=== PATIENT | male | born 1960 | race Caucasian/White ===

== ENCOUNTER 2017-08-04 11:38 | Emergency (ER) | payer OTHER ==
[~2017-08-04] VITALS: Ht 180.3 cm; Wt 86.6 kg
[2017-08-04 12:10] LABS: Hemoglobin 18.5 g/dL (13.5-17.5)
[2017-08-04 12:12] LABS: Hematocrit 53.6 % (41.0-53.0); Mean Corpuscular Hemoglobin 30.4 pg (28.0-32.0); Mean Corpuscular Hgb Conc. 34.5 g/dL (32.0-36.0); Mean Corpuscular Volume 88.2 fL (80.0-100.0); Platelet Count (auto) 227 10^3/uL (140-450); Red Blood Cells 6.08 10^6/uL (4.5-5.90); White Blood Cell 9.5 10^3/uL (4.4-10.8)
[2017-08-04 12:21] LABS: Band Neutrophils % (manual) 0
[2017-08-04 12:22] LABS: Basophils % (manual) 0 (0.0-2.0); Blast Cells 0; Metamyelocytes % 0; Myelocytes % 0; Promyelocytes % 0; Reactive Lymphocytes 0
[2017-08-04 12:28] LABS: Urine Bacteria NONE SEEN /hpf (None Seen); Urine Blood Negative /uL (Negative); Urine Mucus FEW (None Seen); Urine Specific Gravity 1.028 (1.001-1.035); Urine WBC 1 /hpf (0 - 3)
[2017-08-04 13:04] LABS: Alcohol, Urine < 3.0 mg/dL (0-5); Amphetamine Screen, Urine NEGATIVE (NEGATIVE); Barbiturate Scree,Urine NEGATIVE (NEGATIVE); Benzodiazephine Screen, Urine NEGATIVE (NEGATIVE); Cannabinoid Screen, Urine NEGATIVE (NEGATIVE); Cocaine Screen, Urine NEGATIVE (NEGATIVE); Opiate Scree,Urine NEGATIVE (NEGATIVE); Phencyclidine Screen, Urine NEGATIVE (NEGATIVE)
[2017-08-04 13:15] LABS: BUN/Creatinine Ratio 12.2; Total Protein 8.5 g/dL (6.4-8.2)
[2017-08-04 13:16] LABS: Eosinophils % (manual) 1 (0-7); Lymphocytes % (manual) 14 (10.0-50.0); Monocytes % (manual) 10 (0-12)
[2017-08-04 13:20] LABS: Potassium 2.9 mmol/L (3.5-5.1)
[2017-08-04] MEDS ORDERED: POTASSIUM CHL 20 Meq TABLET PO ONE (13:30)
[2017-08-04] MEDS ORDERED: SODIUM CHLORIDE 0.9% 1,000 ML IV ONE (13:45)
[2017-08-04] MEDS: POTASSIUM CHL 20MEQ/100ML 100 ML IV SCH ×2 (14:15→16:03)
== END 2017-08-04 20:35 | disposition home or self-care (01) ==
LOC: ER 11:38
DX: E87.6 Hypokalemia (principal); R11.2 Nausea with vomiting, unspecified; R19.7 Diarrhea, unspecified; I12.9 Hypertensive chronic kidney disease with stage 1 through stage 4 chronic kidney disease, or unspecified chronic kidney disease; E78.5 Hyperlipidemia, unspecified; N18.9 Chronic kidney disease, unspecified
CPT/HCPCS: 36415; 80053; 80307; 81001; 83690; 84132; 85007; 85027; 96360; 96361; 99285; J3480; J7030; 93005